=== PATIENT | female | born 1985 | race Two or more races ===

== ENCOUNTER 2016-12-19 01:38 | Emergency (ER) | payer SELFPAY ==
[~2016-12-19] VITALS: Ht 165.1 cm; Wt 59.0 kg
--- NOTE | 2016-12-19 01:38 | NUR ---
pt to er bb ra and lapd. per ems pt was found inside vacant house making noise and acting bizarre. pt to er bed 9, changed into gown and connected to monitor. pt hr>120, dr poon notified. pt denies any sob or chest pain. will cont to monitor pt.
[2016-12-19] MEDS ORDERED: diphenhydrAMINE HCL 50 MG/ML VIAL ONE (02:19)
[2016-12-19] MEDS ORDERED: HALOPERIDOL LACTATE INJ 5 MG/ML VIAL ONE (02:19)
[2016-12-19] MEDS ORDERED: LORAZEPAM INJ 2 MG/ML VIAL ONE (02:19)
[2016-12-19] MEDS ORDERED: diphenhydrAMINE HCL 50 MG/ML VIAL IM ONE (02:30)
[2016-12-19] MEDS ORDERED: HALOPERIDOL LACTATE INJ 5 MG/ML VIAL IM ONE (02:30)
[2016-12-19] MEDS ORDERED: LORAZEPAM INJ 2 MG/ML VIAL IM ONE (02:30)
--- NOTE | 2016-12-19 03:23 | NUR ---
pt sleeping in [place]. no signs of distress noted. pt vital signs stable, will cont to monitor pt.
--- NOTE | 2016-12-19 06:00 | NUR ---
Patient resting in er bed, NAD noted, Pt is on gaming table operator, will continue to monitor
[2016-12-19 12:55] VITALS: BP 122/79
--- NOTE | 2016-12-19 12:59 | NUR ---
Patient discharged to home in stable condition. Written and verbal after care instructions given. Patient verbalizes understanding of instruction. NAD NOTED UPON DISCHARGE
== END 2016-12-19 12:55 | disposition home or self-care (01) ==
LOC: ER 01:41
DX: F10.10 Alcohol abuse, uncomplicated (principal)
CPT/HCPCS: 96372 ×3; 99284; A4606; J1200; J1630; J2060; Z7610

== ENCOUNTER 2018-05-01 19:42 | Inpatient (IN) | payer MEDICAID ==
[~2018-05-01] VITALS: Ht 160 cm; Wt 53.2 kg
[2018-05-01 20:16] LABS: BASOPHILS # (AUTO) 0.4 /CMM (0.0-0.2); BASOPHILS % (AUTO) 2.7 % (0.0-2.0); EOSINOPHILS % (AUTO) 0.5 % (0.0-6.0); HEMATOCRIT 44 % (33-45); HEMOGLOBIN 14.8 g/dL (11.5-14.8); LYMPHOCYTES # (AUTO) 1.7 /CMM (0.8-4.8); LYMPHOCYTES % (AUTO) 11.1 % (20.0-44.0); MEAN CORPUSCULAR HEMOGLOBIN 34 PG (26.0-33.0); MEAN CORPUSCULAR HGB CONC 34 g/dl (31.0-36.0); MEAN CORPUSCULAR VOLUME 101 fL (82-100); MONOCYTES % (AUTO) 13.3 % (2.0-12.0); NEUTROPHILS # (AUTO) 10.7 /CMM (1.8-8.9); NEUTROPHILS % (AUTO) 72.4 % (43.0-81.0); PLATELET COUNT (AUTO) 135 /CMM (150-450); RDW COEFFICIENT OF VARIATION 12.5 (11.5-15.0); RED BLOOD CELL COUNT(AUTO) 4.37 MIL/uL (4.0-5.2); WHITE BLOOD COUNT (AUTO) 14.9 K/uL (4.3-11.0)
[2018-05-01 20:33] LABS: APPEARANCE,URINE Cloudy (CLEAR); BILIRUBIN,URINE LARGE (NEGATIVE); BLOOD, URINE Moderate Ery/uL (NEGATIVE); COLOR,URINE Amber (YELLOW); KETONES,URINE 15 (NEGATIVE); LEUKOCYTE ESTERASE ,URINE Negative (NEGATIVE); NITRITE, URINE Negative (NEGATIVE); PROTEIN,URINE >=300 mg/dl (NEGATIVE); UGLUCOSE Negative (NEGATIVE)
[2018-05-01 20:37] LABS: ALANINE AMINOTRANSFERASE 81 U/L (12-78); ALBUMIN 4.1 g/dL (3.4-5.0); ALKALINE PHOSPHATASE 112 U/L (46-116); ASPARTATE AMINOTRANSFERASE 119 U/L (15-37); BILIRUBIN,DIRECT 1.4 mg/dL (0.0-0.2); BILIRUBIN,TOTAL 2.9 mg/dL (0.2-1.0); CALCIUM, SERUM 9.9 mg/dL (8.5-10.1); CARBON DIOXIDE 29 mmol/L (21-32); CHLORIDE 91 mmol/L (98-107); CREATININE 1.9 mg/dL (0.6-1.3); GLUCOSE 124 mg/dL (74-106); SODIUM SERUM 135 mmol/L (136-145); TOTAL PROTEIN, SERUM 8.3 g/dL (6.4-8.2); UREA NITROGEN, BLOOD 14 mg/dL (7-18)
[2018-05-01 20:39] LABS: ACETAMINOPHEN < 2 ug/ml (10-30); ALCOHOL, BLOOD < 3 mg/dL (0-0); POTASSIUM 2.4 mmol/L (3.5-5.1); SALICYLATE < 2.8 mg/dL (2.8-20.0)
[2018-05-01] MEDS ORDERED: POTASSIUM CHLORIDE 20 MEQ TAB.PRT.SR PO ONE ×2 (20:47→21:00)
[2018-05-01 20:58] LABS: BACTERIA,URINE Moderate /HPF (None Seen); SQUAMOUS EPITHELIAL CELL,UR Few /HPF (None Seen); WBC,URINE 0-2 /HPF (0-3)
[2018-05-01] MEDS ORDERED: IV NS 0.9% 1,000 ML BAG IV ONE (21:00)
--- NOTE | 2018-05-01 21:07 | NUR ---
BIB RA 102; PER EMS, "PT IS SEEING PEOPLE, PARANOID THAT SOMEONE KIDNAPPED. PT SEEN & EVAL'D BY DR. MAYNARD. PT CALM & COOPERATIVE, NAD NOTED @ THIS TIME. FRIEND @ BS.
--- NOTE | 2018-05-01 21:49 | NUR ---
FRANCIE PEREZ CALLED FOR EVAL; MESSAGE LEFT
--- NOTE | 2018-05-01 22:12 | NUR ---
Kavon jung in ED - 05/01/18 at 2328 by MAMIE PT HAVING SEIZURE EPISODE. MEDICATED WITH 2 MG OF ATIVAN, VERBAL ORDERED BY DR. TORRES.
--- NOTE | 2018-05-01 22:51 | NUR ---
Patient is resting comfortably in bed with eyes closed. Easily aroused. VSS
[2018-05-01] MEDS ORDERED: LORAZEPAM INJ 2 MG/ML VIAL ONE ×2 (23:10→23:29)
--- NOTE | 2018-05-01 23:12 | NUR ---
PT HAVING SEIZURE EPISODE. MEDICATED WITH 2 MG OF ATIVAN IVP, VERBAL ORDERED BY DR. TORRES.
[2018-05-02] VITALS (7 sets, daily range): BP systolic 90–102; BP diastolic 52–69
[2018-05-02] MEDS ORDERED: ONDANSETRON HCL/PF 4 MG/2 ML VIAL IVP PRN
[2018-05-02] MEDS ORDERED: MAGNESIUM HYDROXIDE 30 ML UDC PO PRN
[2018-05-02] MEDS ORDERED: LORAZEPAM INJ 2 MG/ML VIAL IV ONE
[2018-05-02] MEDS ORDERED: MAG HYDROX/AL HYDROX/SIMETH 30 ML UDC PO PRN
[2018-05-02] MEDS ORDERED: LORAZEPAM INJ 2 MG/ML VIAL IV PRN
[2018-05-02] MEDS ORDERED: Z GUARD REMEDY 2 OZ OINT TP PRN
--- NOTE | 2018-05-02 00:10 | NUR ---
PER MD VERBAL ORDER TO GIVE 2MG OF LORAZEPAM IVP ONCE FOR AGRESSION. PT BECAME LESS AGGRESSIVE MD CANCELLED ORDER. WASTED 2 MG OF LORAZEPAM VIA OMNICELL WITH JIMMY DAVISON.
--- NOTE | 2018-05-02 00:13 | NUR ---
PT IS NO LONGER AGGRESSIVE TO [facility] ED STAFF, PATIENT NO LONGER NEEDS SEDATION MEDICATION ATIVAN IVP ORDERED BY TAWANA OLIVA. WASTED MEDICATION WITH RN SHRUTI GRANT
--- NOTE | 2018-05-02 01:05 | NUR ---
CORRECTIONAL COUNSELOR/CASE MANAGER NOTES Patient arrived to unit via gurney. Patient is sleeping, as per RECEIVING SPECIALIST report, patient was given ativan. Boyfriend at bedside. Requested to stay with patient. Charge nurse aware. Tele monitor in place; sinus rhythm 71. Breathing even and unlabored. Not in any distress. Patient in and out of sleep, at times, patient able to answer to name. Boyfriend provided some of the history. Skin intact. Patient is still wearing own clothes as suggested by the boyfriend, as patient gets restless when attempted to change. SO oriented to call pardo. Safety precautions in place. Placed some blankets on side rails for seizure precautions. Bed alarm on. Will monitor accordingly.
--- NOTE | 2018-05-02 01:45 | NUR ---
DATER ASSEMBLER NOTES IV Fluid of NS 1000mL started at 100mL/hr as ordered
[2018-05-02] MEDS: IV NS 0.9% 1,000 ML IV PRN ×2 (01:46→18:15)
--- NOTE | 2018-05-02 02:00 | NUR ---
DRAW IN HAND NOTES ER nurse endorsed to give folic acid PO, not given as patient is not totally awake
--- NOTE | 2018-05-02 06:15 | NUR ---
RN NOTES Patient pulled out IV. New one inserted
[2018-05-02 06:30] LABS: BASOPHILS % (AUTO) 0.3 % (0.0-2.0); EOSINOPHILS % (AUTO) 0.2 % (0.0-6.0); HEMATOCRIT 36 % (33-45); HEMOGLOBIN 12.2 g/dL (11.5-14.8); LYMPHOCYTES # (AUTO) 2.1 /CMM (0.8-4.8); LYMPHOCYTES % (AUTO) 14.4 % (20.0-44.0); MEAN CORPUSCULAR HEMOGLOBIN 35 PG (26.0-33.0); MEAN CORPUSCULAR HGB CONC 34 g/dl (31.0-36.0); MEAN CORPUSCULAR VOLUME 104 fL (82-100); MONOCYTES # (AUTO) 2.3 /CMM (0.1-1.30); MONOCYTES % (AUTO) 15.9 % (2.0-12.0); NEUTROPHILS # (AUTO) 10.2 /CMM (1.8-8.9); NEUTROPHILS % (AUTO) 69.2 % (43.0-81.0); PLATELET COUNT (AUTO) 118 /CMM (150-450); RED BLOOD CELL COUNT(AUTO) 3.46 MIL/uL (4.0-5.2); WHITE BLOOD COUNT (AUTO) 14.7 K/uL (4.3-11.0)
[2018-05-02 07:15] LABS: ALBUMIN 3.3 g/dL (3.4-5.0); BILIRUBIN,DIRECT 0.9 mg/dL (0.0-0.2); BILIRUBIN,TOTAL 2.4 mg/dL (0.2-1.0); CALCIUM, SERUM 8.5 mg/dL (8.5-10.1); CREATININE 0.9 mg/dL (0.6-1.3); MAGNESIUM 1.7 mg/dL (1.8-2.4); PHOSPHORUS 2.3 mg/dL (2.5-4.9); TOTAL PROTEIN, SERUM 6.8 g/dL (6.4-8.2)
[2018-05-02 07:27] LABS: POTASSIUM 2.4 mmol/L (3.5-5.1)
--- NOTE | 2018-05-02 07:37 | NUR ---
RN NOTES Critical value of potassium reported to Epic group (Dr. Saucedo). A/W callback
--- NOTE | 2018-05-02 07:50 | NUR ---
SUPERVISOR CONTACT AND SERVICE CLERKS CLOSING NOTES Patient remains stable. Peripheral IV infusing at 100mL/hr. On tele monitor, SR 85. No complaints as of this time. Endorsed to morning shift RN the critical value of potassium. teacher physically impaired doctor has not returned my call yet. Safety measures in place. Endorsed OVIDIO to AM shift RN
--- NOTE | 2018-05-02 08:00 | NUR ---
RN MS NOTES PT IN BED, ASLEEP, RESPIRATIONS NORMAL, EASY TO AROUSE, ALERT AND VERBALLY RESPONSIVE, DENIES PAIN, CALL LIGHT WITHIN REACH, KEPT WARM AND COMFORTABLE, NEEDS ATTENDED.
[2018-05-02 08:06] LABS: EOSINOPHILS % (MANUAL) 1 % (0-4); LYMPHOCYTES % (MANUAL) 15 % (16-48); MONOCYTES % (MANUAL) 14 % (0-11.0); NEUTROPHILS % (MANUAL) 70 (42-76)
[2018-05-02] MEDS ORDERED: FOLIC ACID 1 MG TABLET PO ONE ×2 (09:00)
[2018-05-02] MEDS: Magnesium 1GM/D5W 100ML PREMIX 100 ML IV SCH ×2 (09:41→10:56)
[2018-05-02] MEDS: THIAMINE HCL 100 MG TABLET PO SCH (09:41)
[2018-05-02] MEDS: PANTOPRAZOLE 40 MG TABLET.DR PO SCH (09:42)
[2018-05-02] MEDS ORDERED: K PHOS NEUTRAL 250 MG TABLET PO ONE (10:00)
[2018-05-02] MEDS ORDERED: POTASSIUM CHLORIDE 20 MEQ TAB.PRT.SR PO ONE (10:00)
--- NOTE | 2018-05-02 11:11 | NUR ---
Social service consult requested by Dr. Zambrano for Alcohol/drug use. Pt. is a 32 year old female who was admitted to [facility] for delirium and tremors. VIGNESH met with pt. bedside. Pt. is alert and oriented x 3. Pt. appeared lethargic and requested for SW to come back later to assess. SW will follow up with pt. when she is more awake. VIGNESH Duran. Addendum: 05/02/18 at 1427 by OTILIA MEDELLIN VIGNESH met with pt. bedside. Pt. still appears lethargic, however was able to cooperate with VIGNESH and provide information. Pt. states she lives with her boyfriend Danish in a guest house located at [address] [place] [address] in [place]. Pt. could not name a person for her emergency contact. Pt. is an alcoholic and drinks roughly a bottle of Tawanna or Rum per day. Pt. states she has been doing for a long time but could not specify how long ago. Pt. denies using drugs at this time but has used methamphetamines and marijuana a few months ago. However, pt's toxicology report shows positive for methamphetamines. Pt. stated she has had a DUI in the past and had to go to an alcohol treatment program. Pt. was unable to state how long ago. VIGNESH offered pt. alcohol treatment programs to attend, however, pt. declined and stated, " You can give me the referrals if you want." VIGNESH to give pt. referrals to drug/alcohol treatment programs along with meetings information prior to discharge. Pt. states her boyfriend will pick her up upon discharge. VIGNESH inquired with pt. for her boyfriend's phone number. Pt. stated, " he does not have a phone." No other social service needs are requested at this time. VIGNESH is available, if needed. VIGNESH updated Med Surg DAVIS Duran and caser in [facility] regarding discharge plan.
--- NOTE | 2018-05-02 12:10 | NUR ---
RN MS NOTES PT IN BED, AWAKE, ALERT AND VERBALLY RESPONSIVE, ABLE TO WALK TO THE BATHROOM WITH 1 PERSON ASSISTANCE, AWARE OF SAFETY PRECAUTIONS, COMPLIANT WITH MEDS AND INTERVENTION, IV FLUIDS INFUSING WELL, SEEN BY DR. MCMAHAN, CALL LIGHT WITHIN REACH, BED ALARM ON, REMINDED PT TO CALL FOR ASSISTANCE, VERBALIZED UNDERSTANDING, KEPT WARM AND COMFORTABLE IN BED.
--- NOTE | 2018-05-02 18:06 | NUR ---
RN MS NOTES PT IN BED, ASLEEP, EASY TO AROUSE, ALERT AND ORIENTED, VERBALLY RESPONSIVE, DENIES PAIN, NOT IN DISTRESS, PT ATE DINNER, IV FLUIDS INFUSING WELL, SEIZURE PRECAUTIONS OBSERVED, BED ALARM ON, ALL NEEDS ATTENDED.
--- NOTE | 2018-05-02 19:20 | NUR ---
MS RN OPENING NOTE Patient was seen lying in bed AAOx3, breathing on RA with no SOB, and currently no signs of acute distress. NS at 100ml/hr is running through the right FA with no signs of leaking or infiltration. BP is 90/55, but per records and day shift RN, the patient's BP runs low with SBP in the low 90s-100s; patient denies lightheadedness, dizziness, and mental changes. Bed is low/locked, two side rails up, and call pardo within reach. Patient has no immediate needs at this time. Will continue to monitor.
[2018-05-03] MEDS: IV NS 0.9% 1,000 ML IV PRN (05:50)
--- NOTE | 2018-05-03 07:41 | NUR ---
MS RN CLOSING NOTE Patient is AAOx3, no signs of acute distress. Patient slept well overnight with no complaints and remains in stable condition. NS at 100ml/hr is running through the right FA IV. Bed is low/locked, side rails up, call pardo within reach. Patient care endorsed to day shift nurse.
[2018-05-03 08:00] VITALS: BP 121/82
[2018-05-03] MEDS: THIAMINE HCL 100 MG TABLET PO SCH (09:11)
[2018-05-03] MEDS: PANTOPRAZOLE 40 MG TABLET.DR PO SCH (09:11)
--- NOTE | 2018-05-03 10:59 | NUR ---
RN NOTES RECEIVED REPORT FROM IRMA MARQUEZ. PT IS RESTING IN BED, SLEEPING COMFORTABLY. PT ON RA, RESPIRATIONS ARE EVEN AND UNLABORED. IV ON RFA INTACT AND RUNNING NS @ 100ML/HR. NO SIGNS OF DISTRESS NOTED. SAFETY MEASURES ARE IN PLACE, CALL LIGHT IS IN REACH. WILL CONTINUE TO MONITOR.
[2018-05-03 12:32] LABS: CREATININE 0.8 mg/dL (0.6-1.3); MAGNESIUM 1.8 mg/dL (1.8-2.4); PHOSPHORUS 1.6 mg/dL (2.5-4.9)
[2018-05-03] MEDS ORDERED: POTASSIUM CHLORIDE 20 MEQ TAB.PRT.SR PO ONE ×2 (14:30)
[2018-05-03] MEDS ORDERED: K PHOS NEUTRAL 250 MG TABLET PO ONE (15:30)
--- NOTE | 2018-05-03 15:50 | NUR ---
RN NOTES PT WAS DISCHARGED IN STABLE CONDITION TO HOME, ACCOMPANIED BY BOYFRIEND. PT WAS PROVIDED WITH DISCHARGE INSTRUCTIONS AND EDUCATION. PT VERBALIZED UNDERSTANDING AND STATED SHE WOULD F/U WITH HER PCP WITHIN 1-2 WEEKS. IV AND ID BAND WERE REMOVED. DISCHARGE PAPERS WERE SIGNED AND BELONGINGS WERE RETURNED TO PT. PT WAS BROUGHT DOWN TO THE LOBBY IN WHEELCHAIR ACCOMPANIED BY DIESEL TRUCK DRIVER FOR PRIVATE TRANSPORTATION.
== END 2018-05-03 16:00 | disposition home or self-care (01) | DRG 812 ==
LOC: ER 19:44 → TELE 05-02 00:52 → MED 05-02 09:01
PROVIDERS: ADMIT Internal Medicine; ATTEND Internal Medicine
DX: T43.621A Poisoning by amphetamines, accidental (unintentional), initial encounter (principal); N17.0 Acute kidney failure with tubular necrosis; G92 Toxic encephalopathy; D69.6 Thrombocytopenia, unspecified; R56.9 Unspecified convulsions; E87.1 Hypo-osmolality and hyponatremia; K70.30 Alcoholic cirrhosis of liver without ascites; F10.239 Alcohol dependence with withdrawal, unspecified; E83.42 Hypomagnesemia; F17.200 Nicotine dependence, unspecified, uncomplicated; E87.6 Hypokalemia; E83.39 Other disorders of phosphorus metabolism; D72.829 Elevated white blood cell count, unspecified; E86.0 Dehydration; E86.1 Hypovolemia; T51.0X1A Toxic effect of ethanol, accidental (unintentional), initial encounter; Y90.0 Blood alcohol level of less than 20 mg/100 ml; Y92.009 Unspecified place in unspecified non-institutional (private) residence as the place of occurrence of the external cause; R74.0 Nonspecific elevation of levels of transaminase and lactic acid dehydrogenase [LDH]; Z71.6 Tobacco abuse counseling
CPT/HCPCS: 36415; 70450-TC; 80048-TC; 80076-TC; 80305; 81000-TC; 82140-TC; 83690-TC; 83735-TC; 84100-TC; 84703-TC; 85025-TC; 87081-TC; 87086-TC; 87186-TC; G0480; J2060; J3475; J7030